=== PATIENT | male | born 1955 | race Caucasian/White ===

== ENCOUNTER 2016-08-02 23:42 | Emergency (ER) | payer OTHER ==
--- NOTE | 2016-08-03 02:04 | ED NURSING NOTES ---
Clinical Report - Nurses [facility] [address] [place] [address] 08/02/2016 23:44 Patient: ABRAHAN VAZQUEZ TRIAGE Triage time 23:48. Acuity: LEVEL 3. Chief Complaint: (Left flank pain). --23:58 Morro Zepeda R.N. 23:48 08/02/16. BP: 182/102. HR: 80. RR: 18. O2 saturation: 98%. Temp: 97.5 F. Pain level now: 12/01. --23:58 Morro Zepeda R.N. Weight: 112.4 kg. Height/Length: 72 inches. BMI: 33.6. --23:57 Morro Zepeda R.N. Medications Atorvastatin. --23:53 Morro Zepeda R.N. Irbesartan. --23:53 Morro Zepeda R.N. Medication/allergy information source: the patient. --23:58 Morro Zepeda R.N. Allergies No Known Drug Allergy. --23:53 Morro Zepeda R.N. History Arrived by private vehicle. Historian: patient. ( Slipped on the wet floor while getting in the tub and hit his left flank on the side of the tub 3 days ago. Pain has been constant since the fall, no other injury from the fall.). Onset. (3 days ago). Last oral intake by patient was lunch. 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 SURGERY HX: Left knee surgery. Neck surgery. Fusion at C2-C3. SOCIAL HX: Light tobacco smoker (cigarette)- less than 1/2 a pack per day. Occasional alcohol use; consumes one glass of wine. --23:58 Morro Zepeda R.N. Interventions ID band on patient. To room. --23:58 Morro Zepeda R.N. PHYSICAL ASSESSMENT Ambulatory to room. GENERAL / NEURO / PSYCH: Alert. Oriented X 4. Appears in no acute distress. HEENT: Mucous membranes are pink. RESPIRATORY: Respirations not labored. Breath sounds within normal limits. CVS: Capillary refill less than 2 seconds. GI / : Obesity. Abdominal distention. Abdomen soft. Bowel sounds within normal limits. ( left flank pain). SKIN: Skin is warm and dry. --23:59 Morro Zepeda R.N. NURSING PROGRESS NOTES Patient identifiers checked. Call light placed in reach. Patient placed in chair. Patient ready for evaluation- chart flagged. --00:00 Morro Zepeda R.N. ( report received from TITO Hooker). --01:09 Saul Pastrana R.N. 02:17 08/03/2016 Percocet (Oxycodone-Acetaminophen) PO 5/325 mg Tablets 1 tab given. Allergies verified, confirmed 5 rights and sedative warning given to the patient. --02:17 Calixto Oleary R.N. 02:18. The patient is calm and resting quietly. SKIN: Skin is warm and dry. Skin color within normal limits. --02:23 Calixto Oleary R.N. DISPOSITION / DISCHARGE Departure time: 02:23. Condition at departure: stable. No learning barriers present. Discharge instructions provided and reviewed with the patient. Reviewed medication(s) side effects, precautions, dosing and course information. Prescription(s) given to the patient. Patient verbalized understanding. Written instructions provided in Welsh. The patient was discharged home and accompanied by spouse. He left the Emergency Department ambulatory and via private vehicle. Spouse driving. FALL RISK ASSESSMENT: Fall risk assessment completed. No fall risk identified. --02:23 Calixto Oleary R.N. 02:10 08/03/16. BP: 170/95. HR: 80. RR: 16. O2 saturation: 97% on room air. Pain level now: 12/01. --02:23 Calixto Oleary R.N. Locked/Released at 08/03/2016 2:24 by Calixto Oleary R.N.
--- NOTE | 2016-08-03 02:04 | ED ORDER SUMMARY ---
..... Patient: ABRAHAN VAZQUEZ OrderSheet [facility] VisitID: [id number] [address] [place] [address] 61y, M Registration Date/Time: 08/02/2016 ORDER SHEET Weight: 112.4 kg Allergies: No Known Drug Allergy GENERAL ORDERS: UA-Culture if indicated Urgent (00:25 08/03/2016 Lawrence R.N. per protocol) (0:25 Lawrence R.N.) MEDICATION ORDERS: Percocet PO 5/325 mg (HIGH ALERT MEDICATION, NOW) (02:02 08/03/2016 Tara Roca) (Ack 2:14 JRadhaivepaulette R.N.) (2:17 JQuivey R.N.) IV FLUIDS: ORDER SHEET NOTES: Reason for Study: Flank Pain Left [Electronically signed by Calixto Oleary R.N. (02:24 08/03/2016)] [Electronically signed by Saravanan Mcleod Dr. (04:42 08/05/2016)] [Electronically locked/signed by Calixto Oleary R.N. (02:24 08/03/2016)]
--- NOTE | 2016-08-03 02:04 | ED NURSING NOTES ---
Clinical Report - Nurses [facility] [address] [place] [address] 08/02/2016 23:44 Patient: ABRAHAN VAZQUEZ TRIAGE Triage time 23:48. Acuity: LEVEL 3. Chief Complaint: (Left flank pain). --23:58 Morro Zepeda R.N. 23:48 08/02/16. BP: 182/102. HR: 80. RR: 18. O2 saturation: 98%. Temp: 97.5 F. Pain level now: 12/01. --23:58 Morro Zepeda R.N. Weight: 112.4 kg. Height/Length: 72 inches. BMI: 33.6. --23:57 Morro Zepeda R.N. Medications Atorvastatin. --23:53 Morro Zepeda R.N. Irbesartan. --23:53 Morro Zepeda R.N. Medication/allergy information source: the patient. --23:58 Morro Zepeda R.N. Allergies No Known Drug Allergy. --23:53 Morro Zepeda R.N. History Arrived by private vehicle. Historian: patient. ( Slipped on the wet floor while getting in the tub and hit his left flank on the side of the tub 3 days ago. Pain has been constant since the fall, no other injury from the fall.). Onset. (3 days ago). Last oral intake by patient was lunch. 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 SURGERY HX: Left knee surgery. Neck surgery. Fusion at C2-C3. SOCIAL HX: Light tobacco smoker (cigarette)- less than 1/2 a pack per day. Occasional alcohol use; consumes one glass of wine. --23:58 Morro Zepeda R.N. Interventions ID band on patient. To room. --23:58 Morro Zepeda R.N. PHYSICAL ASSESSMENT Ambulatory to room. GENERAL / NEURO / PSYCH: Alert. Oriented X 4. Appears in no acute distress. HEENT: Mucous membranes are pink. RESPIRATORY: Respirations not labored. Breath sounds within normal limits. CVS: Capillary refill less than 2 seconds. GI / : Obesity. Abdominal distention. Abdomen soft. Bowel sounds within normal limits. ( left flank pain). SKIN: Skin is warm and dry. --23:59 Morro Zepeda R.N. NURSING PROGRESS NOTES Patient identifiers checked. Call light placed in reach. Patient placed in chair. Patient ready for evaluation- chart flagged. --00:00 Morro Zepeda R.N. ( report received from TITO Hooker). --01:09 Saul Pastrana R.N. 02:17 08/03/2016 Percocet (Oxycodone-Acetaminophen) PO 5/325 mg Tablets 1 tab given. Allergies verified, confirmed 5 rights and sedative warning given to the patient. --02:17 Calixto Oleary R.N. 02:18. The patient is calm and resting quietly. SKIN: Skin is warm and dry. Skin color within normal limits. --02:23 Calixto Oleary R.N. DISPOSITION / DISCHARGE Departure time: 02:23. Condition at departure: stable. No learning barriers present. Discharge instructions provided and reviewed with the patient. Reviewed medication(s) side effects, precautions, dosing and course information. Prescription(s) given to the patient. Patient verbalized understanding. Written instructions provided in Burundian. The patient was discharged home and accompanied by spouse. He left the Emergency Department ambulatory and via private vehicle. Spouse driving. FALL RISK ASSESSMENT: Fall risk assessment completed. No fall risk identified. --02:23 Calixto Oleary R.N. 02:10 08/03/16. BP: 170/95. HR: 80. RR: 16. O2 saturation: 97% on room air. Pain level now: 12/01. --02:23 Calixto Oleary R.N. Locked/Released at 08/03/2016 2:24 by Calixto Oleary R.N.
--- NOTE | 2016-08-03 02:04 | ED CLINICAL REPORT ---
Clinical Report - Physicians/Mid Levels [facility] [address] [place] [address] 08/02/2016 23:44 Patient: ABRAHAN VAZQUEZ Time Seen: 0025. Arrived- By private vehicle. Historian- patient. HISTORY OF PRESENT ILLNESS Chief Complaint: BACK PAIN. It is described as being moderate in degree and in the area of the right flank. The quality is noted to be aching. No radiation. Modifying factors. (worse with movement). Onset- 3 days ago and it is still present (unchanged). It was abrupt in onset and has been constant but is not gone now. No bladder dysfunction, bowel dysfunction, sensory loss or motor loss. Patient notes an injury but denies injury to the head or neck. Mechanism of injury- he slipped and fell. No other injury. Similar symptoms previously: None. Recent medical care: Not recently seen/assessed. REVIEW OF SYSTEMS No fever, chills, skin rash, abdominal pain or nausea. No vomiting. All systems otherwise negative, except as recorded above. PAST HISTORY See nurses notes. SOCIAL HISTORY Never smoker. No alcohol use or drug use. No recent travel. Is a local resident. ADDITIONAL NOTES The nursing notes have been reviewed. PHYSICAL EXAM Vital Signs: 08/02/2016 23:48 BP: 182/102. HR: 80. RR: 18. O2 saturation: 98%. Temp: 97.5 F. Pain level now: 9/10. Hypertensive. Oxygen saturation normal. Appearance: Alert. No acute distress. HEENT: Normal external inspection. Eyes: Pupils equal, round and reactive to light. ENT: Ears normal. Pharynx normal. Neck: Normal inspection. Neck nontender. Painless ROM. No vertebral tenderness. CVS: Heart sounds normal. Pulses normal. Respiratory: No respiratory distress. Breath sounds normal. Abdomen: No visible injury. Soft and nontender. Bowel sounds normal. No organomegaly. No mass. Femoral pulses equal. Back: Normal inspection. Muscle spasm of the back. No vertebral point tenderness. (right lower lumbar paraspinal muscle. no crepitus. no genoveva abnormalities. no overlying skin changes.). Skin: Skin warm and dry. Normal skin color. No rash. Normal skin turgor. Extremities: Extremities exhibit normal ROM. Extremities nontender. Neuro: Oriented X 3. Mood/affect normal. No motor deficit. No sensory deficit. LABS, X-RAYS, AND EKG Laboratory Tests: UA-Culture if indicated: (SHAYNE: 08/03/2016 00:10) ( MsgRcvd 08/03/2016 01:35) Final results Test Result Flag Units (Reference) URINE COLOR YELLOW URINE APPEARANCE CLEAR URINE GLUCOSE NEGATIVE (NEGATIVE) URINE BILIRUBIN NEGATIVE (NEGATIVE) URINE KETONE NEGATIVE (NEGATIVE) URINE SPECIFIC GRAVITY <= 1.005 L (1.010-1.030) URINE PH 6.0 (5.0-8.0) URINE PROTEIN NEGATIVE (NEGATIVE) URINE UROBILINOGEN 0.2 EU/dL (0.2-1.0) URINE NITRITE NEGATIVE (NEGATIVE) URINE BLOOD NEGATIVE (NEGATIVE) URINE LEUK ESTERASE NEGATIVE (NEGATIVE) URINE RBC 0-1 rbc/hpf (0-1) URINE WBC 0-1 wbc/hpf (0-1) URINE EPITHELIAL CELLS 0-1 EPI/hpf (0-5) URINE BACTERIA NONE SEEN (NONE SEEN) URINE COMMENT CULT NOT INDICATED URINE CULTURES ARE SET-UP BASED ON THE FOLLOWING CRITERIA:POSITIVE NITRITEPOSITIVE LEUKOCYTE ESTERASEGREATER THAN 10 WHITE BLOOD CELLSMODERATE (2+) OR GREATER BACTERIA . PROGRESS AND PROCEDURES Course of Care: The patient is a pleasant 61-year-old male presenting for a vaginal right-sided flank pain following fall in shower. Patient is otherwise reassuring examination. No abdominal tenderness. No concern for an equal pulses. No concern for retroperitoneal bleeding. No ecchymosis noted on patient's examination. because of the time course of the patient's fall and pain as well as lack of outward signs of trauma, have low clinical suspicion for severe retroperitoneal injury and any intra-abdominal pathology. Relatively low mechanism of injury. Patient will be evaluated with urinalysis. Pain medication was provided. Patient is agreeable to the treatment and plan. The patient's workup was remarkable for the findings above. We had to call the lab because of the delay in patients urinalysis. It has resulted eventually and no blood is noted on patient's urinalysis. Because the patient's negative workup here in the emergency department and otherwise unremarkable vital signs, do not feel patient requires further emergency department workup or evaluation. Patient will be instructed to follow-up with his primary care Dr. Discussed with the patient is workup here in the emergency department including diagnosis, home care, follow-up, and return precautions. All questions have been answered. The patient expressed understanding of these instructions and was agreeable to them. Disposition: Discharged. Condition: good. CLINICAL IMPRESSION 08/02/2016 23:48 BP: 182/102. HR: 80. RR: 18. O2 saturation: 98%. Temp: 97.5 F. Pain level now: 12/01. Hypertensive. Oxygen saturation normal. Essential hypertension. Single contusion to the lower back. (left). INSTRUCTIONS Warnings: SEDATIVE MEDICATION: You were given sedative medication during your visit. Do not drive or operate dangerous machinery. GENERAL WARNINGS: Return or contact your physician immediately if your condition worsens or changes unexpectedly, if not improving as expected, or if other problems arise. SPECIFICALLY, return if you develop weakness, numbness, tingling, pain or incontinence. Your Current Medications: CONTINUE TAKING THE FOLLOWING MEDICATIONS: Atorvastatin*. Irbesartan*. Prescription Medications: Flexeril 10 mg: take 1 orally every 8 hours as needed for muscle spasm or pain. Dispense twenty (20). No refills. Substitution is permissible. Follow-up: Return to the emergency department as needed. Follow up with your doctor in three days. Reason for referral: recheck today's concerns. Summary of care provided to patient via paper. Screening today revealed the patient's blood pressure to be in the normal range. The patient should follow up with a primary care provider for blood pressure management. Understanding of the discharge instructions verbalized by patient. (Electronically signed by Saravanan Mcleod Dr. 08/05/2016 4:42)
--- NOTE | 2016-08-03 02:04 | ED ORDER SUMMARY ---
..... Patient: ABRAHAN VAZQUEZ OrderSheet [facility] VisitID: [id number] [address] [place] [address] 61y, M Registration Date/Time: 08/02/2016 ORDER SHEET Weight: 112.4 kg Allergies: No Known Drug Allergy GENERAL ORDERS: UA-Culture if indicated Urgent (00:25 08/03/2016 Lawrence R.N. per protocol) (0:25 Lawrence R.N.) MEDICATION ORDERS: Percocet PO 5/325 mg (HIGH ALERT MEDICATION, NOW) (02:02 08/03/2016 Tara Roca) (Ack 2:14 JRadhaivepaulette R.N.) (2:17 JQuivey R.N.) IV FLUIDS: ORDER SHEET NOTES: Reason for Study: Flank Pain Left [Electronically signed by Calixto Oleary R.N. (02:24 08/03/2016)] [Electronically signed by Saravanan Mcleod Dr. (04:42 08/05/2016)] [Electronically locked/signed by Calixto Oleary R.N. (02:24 08/03/2016)]
--- NOTE | 2016-08-05 04:42 | ED MAR SUMMARY ---
..... Medication Administration Record [facility] [address] [place] [address] Patient: ABRAHAN VAZQUEZ Visit ID: [id number] 61y, M Weight: 112.4 kg Height/Length: 72 in BMI: 33.6 ALLERGIES: No Known Drug Allergy Given 02:17 08/03/2016 Calixto Oleary R.N. Medication Administered: PERCOCET [PO] (OXYCODONE-ACETAMINOPHEN), Dose: 1 tab 5/325 mg Tablets PO. Medication Ordered: Percocet PO 5/325 mg (HIGH ALERT MEDICATION, NOW).
--- NOTE | 2016-08-05 04:42 | ED MED RECONCILIATION SUMMARY ---
Patient: ABRAHAN VAZQUEZ Medication Reconciliation Report [facility] VisitID: [id number] [address] [place] [address] 61y, M Registration Date/Time: 08/02/2016 Weight: 112.4 kg Height/Length: 72 in. BMI: 33.6 ALLERGIES: No Known Drug Allergy The patient's Home Medications are listed below: CONTINUE TAKING THE FOLLOWING MEDICATIONS: Atorvastatin Irbesartan The source(s) of the original Home Medication information: patient The following Medications were given to the patient in the Emergency Department: Percocet [PO] PO 1 tab, administered: 08/03/2016 2:17:00 AM The following Medications were prescribed to the patient: Flexeril 10 mg: take 1 orally every 8 hours as needed for muscle spasm or pain. Dispense twenty (20). No refills. Substitution is permissible. -- Saravanan Mcleod Dr.
--- NOTE | 2016-08-05 04:42 | ED MED RECONCILIATION SUMMARY ---
Patient: ABRAHAN VAZQUEZ Medication Reconciliation Report [facility] VisitID: [id number] [address] [place] [address] 61y, M Registration Date/Time: 08/02/2016 Weight: 112.4 kg Height/Length: 72 in. BMI: 33.6 ALLERGIES: No Known Drug Allergy The patient's Home Medications are listed below: CONTINUE TAKING THE FOLLOWING MEDICATIONS: Atorvastatin Irbesartan The source(s) of the original Home Medication information: patient The following Medications were given to the patient in the Emergency Department: Percocet [PO] PO 1 tab, administered: 08/03/2016 2:17:00 AM The following Medications were prescribed to the patient: Flexeril 10 mg: take 1 orally every 8 hours as needed for muscle spasm or pain. Dispense twenty (20). No refills. Substitution is permissible. -- Saravanan Mcleod Dr.
--- NOTE | 2016-08-05 04:42 | ED DISCHARGE INSTRUCTIONS ---
Patient: ABRAHAN VAZQUEZ General Instructions [facility] VisitID: [id number] [place] [address] 61y, M Registration Date/Time: 08/02/2016 08/02/2016 23:48 BP: 182/102. HR: 80. RR: 18. O2 saturation: 98%. Temp: 97.5 F. Pain level now: 9/10. Hypertensive. Oxygen saturation normal. Essential hypertension. Single contusion to the lower back. (left). INSTRUCTIONS Warnings: SEDATIVE MEDICATION: You were given sedative medication during your visit. Do not drive or operate dangerous machinery. GENERAL WARNINGS: Return or contact your physician immediately if your condition worsens or changes unexpectedly, if not improving as expected, or if other problems arise. SPECIFICALLY, return if you develop weakness, numbness, tingling, pain or incontinence. Your Current Medications: CONTINUE TAKING THE FOLLOWING MEDICATIONS: Atorvastatin*. Irbesartan*. Prescription Medications: Flexeril 10 mg: take 1 orally every 8 hours as needed for muscle spasm or pain. Dispense twenty (20). No refills. Substitution is permissible. Follow-up: Return to the emergency department as needed. Follow up with your doctor in three days. Reason for referral: recheck today's concerns. Summary of care provided to patient via paper. Screening today revealed the patient's blood pressure to be in the normal range. The patient should follow up with a primary care provider for blood pressure management. Understanding of the discharge instructions verbalized by patient. ADDITIONAL INFORMATION High Blood Pressure -- To Be Confirmed [No Tx] Your blood pressure was higher today than normal. Sometimes anxiety or pain can cause a temporary rise in blood pressure that later returns to normal. If your blood pressure is high on one measurement, this does not mean that you have hypertension (a chronic illness). However, you must have your blood pressure measured again within the next few days to find out if its still high. A normal blood pressure is 120/80 or less. The first (top) number is the "systolic" pressure. The second (bottom) number is the "diastolic" pressure. Hypertension exists when either the top number is 140 or higher, OR the bottom number is 90 or higher on repeated measurements. Blood pressure in the range of 120-140 (systolic) or 80-89 (diastolic) is considered "pre-hypertension". This means your are at risk for getting hypertension. You should have regular blood pressure checks to be sure your blood pressure is not rising. Home Care: Measure your blood pressure on 3 different days and write down the results. This can be done at your doctor's office or this facility. Some pharmacies and grocery stores offer automated blood pressure machines for your use. Follow Up: If your blood pressure is "high" (over 120/80) on 2 out of 3 days, you will need to follow up with your doctor for further evaluation and treatment. DO NOT PUT THIS OFF! Untreated high blood pressure increases the risk for heart attack, also known as acute myocardial infarction, or AMI, and stroke. It is a treatable condition. Get Prompt Medical Attention if any of the following occur: Chest pain or shortness of breath Severe headache Throbbing or rushing sound in the ears Nosebleed Sudden severe abdominal pain Extreme drowsiness, confusion or fainting Dizziness or vertigo (dizziness with spinning sensation) Weakness of an arm or leg or one side of the face Difficulty with speech or vision Cyclobenzaprine Hydrochloride Oral tablet What is this medicine? CYCLOBENZAPRINE (sye kloe CLAUDIA za preen) is a muscle relaxer. It is used to treat muscle pain, spasms, and stiffness. How should I use this medicine? Take this medicine by mouth with a glass of water. Follow the directions on the prescription label. If this medicine upsets your stomach, take it with food or milk. Take your medicine at regular intervals. Do not take it more often than directed. 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 Special care may be needed. What side effects may I notice from receiving this medicine? Side effects that you should report to your doctor or health rn medicare as soon as possible: allergic reactions like skin rash, itching or hives, swelling of the face, lips, or tongue chest pain fast heartbeat hallucinations seizures vomiting Side effects that usually do not require medical attention (report to your doctor or health rn medicare if they continue or are bothersome): headache What may interact with this medicine? Do not take this medicine with any of the following medications: cisapride droperidol flecainide grepafloxacin halofantrine levomethadyl MAOIs like Carbex, Eldepryl, Marplan, Nardil, and Parnate nilotinib pimozide probucol sertindole This medicine may also interact with the following medications: abarelix alcohol contrast dyes dolasetron guanethidine medicines for cancer medicines for depression, anxiety, or psychotic disturbances medicines to treat an irregular heartbeat medicines used for sleep or numbness during surgery or procedure methadone octreotide ondansetron palonosetron phenothiazines like chlorpromazine, mesoridazine, prochlorperazine, thioridazine some medicines for infection like alfuzosin, chloroquine, clarithromycin, levofloxacin, mefloquine, pentamidine, troleandomycin tramadol vardenafil What if I miss a dose? If you miss a dose, take it as soon as you can. If it is almost time for your next dose, take only that dose. Do not take double or extra doses. Where should I keep my medicine? Keep out of the reach of children. Store at room temperature between 15 and 30 degrees C (59 and 86 degrees F). Keep container tightly closed. Throw away any unused medicine after the expiration date. What should I tell my health care provider before I take this medicine? They need to know if you have any of these conditions: heart disease, irregular heartbeat, or previous heart attack liver disease thyroid problem an unusual or allergic reaction to cyclobenzaprine, tricyclic antidepressants, lactose, other medicines, foods, dyes, or preservatives or trying to get breast-feeding What should I watch for while using this medicine? Check with your doctor or health rn medicare if your condition does not improve within 1 to 3 weeks. You may get drowsy or dizzy when you first start taking the medicine or change doses. Do not drive, use machinery, or do anything that may be dangerous until you know how the medicine affects you. Stand or sit up slowly. Your mouth may get dry. Drinking water, chewing sugarless gum, or sucking on hard candy may help. You have been given the following additional information: Hypertension, To Be Confirmed Cyclobenzaprine Hydrochloride Oral tablet (Electronically signed by Saravanan Mcleod Dr. 08/05/2016 4:42)
--- NOTE | 2016-08-05 04:42 | ED DISCHARGE INSTRUCTIONS ---
Patient: ABRAHAN VAZQUEZ General Instructions [facility] VisitID: [id number] [place] [address] 61y, M Registration Date/Time: 08/02/2016 08/02/2016 23:48 BP: 182/102. HR: 80. RR: 18. O2 saturation: 98%. Temp: 97.5 F. Pain level now: 9/10. Hypertensive. Oxygen saturation normal. Essential hypertension. Single contusion to the lower back. (left). INSTRUCTIONS Warnings: SEDATIVE MEDICATION: You were given sedative medication during your visit. Do not drive or operate dangerous machinery. GENERAL WARNINGS: Return or contact your physician immediately if your condition worsens or changes unexpectedly, if not improving as expected, or if other problems arise. SPECIFICALLY, return if you develop weakness, numbness, tingling, pain or incontinence. Your Current Medications: CONTINUE TAKING THE FOLLOWING MEDICATIONS: Atorvastatin*. Irbesartan*. Prescription Medications: Flexeril 10 mg: take 1 orally every 8 hours as needed for muscle spasm or pain. Dispense twenty (20). No refills. Substitution is permissible. Follow-up: Return to the emergency department as needed. Follow up with your doctor in three days. Reason for referral: recheck today's concerns. Summary of care provided to patient via paper. Screening today revealed the patient's blood pressure to be in the normal range. The patient should follow up with a primary care provider for blood pressure management. Understanding of the discharge instructions verbalized by patient. ADDITIONAL INFORMATION High Blood Pressure -- To Be Confirmed [No Tx] Your blood pressure was higher today than normal. Sometimes anxiety or pain can cause a temporary rise in blood pressure that later returns to normal. If your blood pressure is high on one measurement, this does not mean that you have hypertension (a chronic illness). However, you must have your blood pressure measured again within the next few days to find out if its still high. A normal blood pressure is 120/80 or less. The first (top) number is the "systolic" pressure. The second (bottom) number is the "diastolic" pressure. Hypertension exists when either the top number is 140 or higher, OR the bottom number is 90 or higher on repeated measurements. Blood pressure in the range of 120-140 (systolic) or 80-89 (diastolic) is considered "pre-hypertension". This means your are at risk for getting hypertension. You should have regular blood pressure checks to be sure your blood pressure is not rising. Home Care: Measure your blood pressure on 3 different days and write down the results. This can be done at your doctor's office or this facility. Some pharmacies and grocery stores offer automated blood pressure machines for your use. Follow Up: If your blood pressure is "high" (over 120/80) on 2 out of 3 days, you will need to follow up with your doctor for further evaluation and treatment. DO NOT PUT THIS OFF! Untreated high blood pressure increases the risk for heart attack, also known as acute myocardial infarction, or AMI, and stroke. It is a treatable condition. Get Prompt Medical Attention if any of the following occur: Chest pain or shortness of breath Severe headache Throbbing or rushing sound in the ears Nosebleed Sudden severe abdominal pain Extreme drowsiness, confusion or fainting Dizziness or vertigo (dizziness with spinning sensation) Weakness of an arm or leg or one side of the face Difficulty with speech or vision Cyclobenzaprine Hydrochloride Oral tablet What is this medicine? CYCLOBENZAPRINE (sye kloe CLAUDIA za preen) is a muscle relaxer. It is used to treat muscle pain, spasms, and stiffness. How should I use this medicine? Take this medicine by mouth with a glass of water. Follow the directions on the prescription label. If this medicine upsets your stomach, take it with food or milk. Take your medicine at regular intervals. Do not take it more often than directed. Talk to your review analyst regarding the use of this medicine in children. Special care may be needed. What side effects may I notice from receiving this medicine? Side effects that you should report to your doctor or health childcare provider as soon as possible: allergic reactions like skin rash, itching or hives, swelling of the face, lips, or tongue chest pain fast heartbeat hallucinations seizures vomiting Side effects that usually do not require medical attention (report to your doctor or health childcare provider if they continue or are bothersome): headache What may interact with this medicine? Do not take this medicine with any of the following medications: cisapride droperidol flecainide grepafloxacin halofantrine levomethadyl MAOIs like Carbex, Eldepryl, Marplan, Nardil, and Parnate nilotinib pimozide probucol sertindole This medicine may also interact with the following medications: abarelix alcohol contrast dyes dolasetron guanethidine medicines for cancer medicines for depression, anxiety, or psychotic disturbances medicines to treat an irregular heartbeat medicines used for sleep or numbness during surgery or procedure methadone octreotide ondansetron palonosetron phenothiazines like chlorpromazine, mesoridazine, prochlorperazine, thioridazine some medicines for infection like alfuzosin, chloroquine, clarithromycin, levofloxacin, mefloquine, pentamidine, troleandomycin tramadol vardenafil What if I miss a dose? If you miss a dose, take it as soon as you can. If it is almost time for your next dose, take only that dose. Do not take double or extra doses. Where should I keep my medicine? Keep out of the reach of children. Store at room temperature between 15 and 30 degrees C (59 and 86 degrees F). Keep container tightly closed. Throw away any unused medicine after the expiration date. What should I tell my health care provider before I take this medicine? They need to know if you have any of these conditions: heart disease, irregular heartbeat, or previous heart attack liver disease thyroid problem an unusual or allergic reaction to cyclobenzaprine, tricyclic antidepressants, lactose, other medicines, foods, dyes, or preservatives or trying to get breast-feeding What should I watch for while using this medicine? Check with your doctor or health childcare provider if your condition does not improve within 1 to 3 weeks. You may get drowsy or dizzy when you first start taking the medicine or change doses. Do not drive, use machinery, or do anything that may be dangerous until you know how the medicine affects you. Stand or sit up slowly. Your mouth may get dry. Drinking water, chewing sugarless gum, or sucking on hard candy may help. You have been given the following additional information: Hypertension, To Be Confirmed Cyclobenzaprine Hydrochloride Oral tablet (Electronically signed by Saravanan Mcleod Dr. 08/05/2016 4:42)
--- NOTE | 2016-08-05 04:42 | ED MAR SUMMARY ---
..... Medication Administration Record [facility] [address] [place] [address] Patient: ABRAHAN VAZQUEZ Visit ID: [id number] 61y, M Weight: 112.4 kg Height/Length: 72 in BMI: 33.6 ALLERGIES: No Known Drug Allergy Given 02:17 08/03/2016 Calixto Oleary R.N. Medication Administered: PERCOCET [PO] (OXYCODONE-ACETAMINOPHEN), Dose: 1 tab 5/325 mg Tablets PO. Medication Ordered: Percocet PO 5/325 mg (HIGH ALERT MEDICATION, NOW).
== END 2016-08-03 02:23 | disposition home or self-care (01) ==
LOC: ED SRH 23:42
DX: S30.0XXA Contusion of lower back and pelvis, initial encounter (principal); I10 Essential (primary) hypertension; W18.2XXA Fall in (into) shower or empty bathtub, initial encounter; Y93.E1 Activity, personal bathing and showering; Y99.9 Unspecified external cause status; Y92.9 Unspecified place or not applicable
CPT/HCPCS: 90004